=== PATIENT | female | born 2000 | race Caucasian/White ===

== ENCOUNTER 2019-04-24 07:06 | Emergency (ER) | payer OTHER ==
[2019-04-24 07:15] VITALS: BP 123/59; PULSE 80; TEMP 98.1; BMI 20.1
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
[2019-04-24 09:00] LABS: PH,URINE 6.5 (5.0-8.0); URINE APPEARANCE CLEAR; URINE BILIRUBIN NEGATIVE (NEGATIVE); URINE COLOR YELLOW; URINE GLUCOSE (UA) NEGATIVE (NEGATIVE); URINE KETONE NEGATIVE (NEGATIVE); URINE LEUK ESTERASE NEGATIVE (NEGATIVE); URINE NITRITE NEGATIVE (NEGATIVE); URINE PROTEIN NEGATIVE (NEGATIVE); URINE UROBILINOGEN 0.2 mg/dL (0.2-1.0)
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
[2019-04-24] MEDS ORDERED: ACETAMINOPHEN 325 MG TABLET (FP) PO ONE (09:54)
[2019-04-24 10:03] LABS: BILIRUBIN,TOTAL 0.3 mg/dL (0.2-1); BLOOD UREA NITROGEN 14.8 mg/dL (7-18); CALCIUM 9.9 mg/dL (8.5-10.1); CREATININE 0.9 mg/dL (0.55-1.3); POTASSIUM 4.8 mmol/L (3.5-5.1); TOT PROT 7.9 g/dl (6.4-8.2)
[2019-04-24] MEDS ORDERED: ACETAMINOPHEN 325 MG TABLET (FP) ONE (10:04)
[2019-04-24] MEDS ORDERED: BACITRACIN 15 GM TUBE TOPICAL OINTMENT TP ONE (10:34)
[2019-04-24] MEDS ORDERED: BACITRACIN 0.9 GM PACKET ONE (11:33)
[2019-04-24] MEDS ORDERED: BACITRACIN 15 GM TUBE TOPICAL OINTMENT ONE (11:41)
== END 2019-04-24 12:17 | disposition home or self-care (01) ==
LOC: JER 07:06
DX: S29.8XXA Other specified injuries of thorax, initial encounter (principal); S70.311A Abrasion, right thigh, initial encounter; S50.811A Abrasion of right forearm, initial encounter; S20.419A Abrasion of unspecified back wall of thorax, initial encounter; V13.4XXA Pedal cycle driver injured in collision with car, pick-up truck or van in traffic accident, initial encounter; Y92.414 Local residential or business street as the place of occurrence of the external cause; Y93.55 Activity, bike riding; Y99.8 Other external cause status; J45.909 Unspecified asthma, uncomplicated; F17.210 Nicotine dependence, cigarettes, uncomplicated
CPT/HCPCS: 36415; 71046-TC-FY; 71260-TC; 72070-TC-FY; 72100-TC-FY; 80053; 81003; 84703; 99282-25